=== PATIENT | female | born 1990 | race American Indian/Alaskan Native ===

== ENCOUNTER 2019-06-10 17:03 | Emergency (ER) | payer SELFPAY ==
--- NOTE | 2019-06-10 19:12 | Emergency Department Report ---
<ABRIL HAMMOND - Last Filed: 06/11/19 00:59> ED Psych HPI - General Chief Complaint: Psych Stated Complaint: PSYCH EVALUATION Time Seen by Provider: 06/10/19 18:56 Source: patient, EMS Mode of arrival: Ambulatory - History of Present Illness Initial Comments: 29-year-old female with unknown medical history presents to ED via EMS. Patient initially stated she came for a "[place] Detox." Patient states she has been taking everything she can at home for [place] such as Rojas Peppers, seeds of the pepper, V-8 Juice, etc. when I enter the room, patient tells me she is here for a test. Patient then tells me that she was arrested for battery. And states that she was not actually guilty of battery, stating "I do not know if it was audition or they were trying to sell my organs on the black market." Speech is disorganized, patient has flight of ideas. She is unable to answer my questions directly. Patient is sidetracked very easily. MD Complaint: other -: unknown Associated Psychiatric Symptoms: racing thoughts, delusions Quality: constant Associated Symptoms: denies other symptoms Treatments Prior to Arrival: none - Related Data Home Medications Medication Instructions Recorded Confirmed Last Taken Vit 93/Iron Fum/Folic 1 each PO QDAY 12/23/12 08/21/13 08/20/13 10:00 [ Formula Tablet] Valacyclovir HCl [Valacyclovir] 500 mg PO DAILY 08/20/13 08/20/13 08/20/13 16:00 Previous Rx's Medication Instructions Recorded Last Taken Type oxyCODONE /ACETAMINOPHEN [Percocet 1 tab PO Q4HR #30 tablet 08/22/13 Unknown Rx 5/325 mg] Allergies Allergy/AdvReac Type Severity Reaction Status Date / Time No Known Allergies Allergy Verified 08/20/13 19:31 ED Review of Systems Psychiatric: denies: homicidal thoughts, suicidal thoughts ED Past Medical Hx - Past Medical History Hx Hypertension: No Hx Congestive Heart Failure: No Hx Diabetes: No Hx Deep Vein Thrombosis: No Hx Renal Disease: No Hx Sickle Cell Disease: No Hx Seizures: No Hx Asthma: No Hx COPD: No Hx HIV: No Additional medical history: shingles - Social History Smoking Status: Never Smoker Substance Use Type: Alcohol, Marijuana - Medications Home Medications: Home Medications Medication Instructions Recorded Confirmed Last Taken Type Vit 93/Iron Fum/Folic 1 each PO QDAY 12/23/12 08/21/13 08/20/13 10:00 History [ Formula Tablet] Valacyclovir HCl [Valacyclovir] 500 mg PO DAILY 08/20/13 08/20/13 08/20/13 16:00 History oxyCODONE /ACETAMINOPHEN [Percocet 1 tab PO Q4HR #30 tablet 08/22/13 Unknown Rx 5/325 mg] ED Physical Exam - General Limitations: No Limitations General appearance: alert, in no apparent distress - Head Head exam: Present: atraumatic, normocephalic - Eye Eye exam: Present: normal appearance, EOMI - ENT ENT exam: Present: mucous membranes moist - Neck Neck exam: Present: normal inspection - Respiratory Respiratory exam: Present: normal lung sounds bilaterally. Absent: respiratory distress - Cardiovascular Cardiovascular Exam: Present: regular rate, normal rhythm - GI/Abdominal GI/Abdominal exam: Absent: distended - Extremities Exam Extremities exam: Present: normal inspection - Neurological Exam Neurological exam: Present: alert, oriented X3 - Psychiatric Psychiatric exam: Present: manic, other (Speech is pressured, flight of ideas present, thoughts are disorganized, delusions present) - Skin Skin exam: Present: warm, dry, intact, normal color ED Medical Decision Making - Lab Data Result diagrams: 06/10/19 17:59 06/10/19 17:59 - Medical Decision Making 29-year-old female appears to be manic and psychotic. Labs are very reviewed and are unremarkable. Patient has been placed on a 1013, required Ativan for sedation. Patient is medically clear for mental health evaluation. Will dispo per psych. - Differential Diagnosis Bipolar, david, psychosis, drug intoxication ED Disposition Condition: Stable Referrals: PRIMARY CARE, [Primary Care Provider] - 3-5 Days <RAHEEL BREWER - Last Filed: 06/12/19 14:36> ED Review of Systems ROS: Stated complaint: PSYCH EVALUATION Other details as noted in HPI ED Course Vital Signs 06/10/19 06/10/19 06/10/19 17:50 18:03 19:44 Temperature 98.8 F 98.2 F Pulse Rate 88 80 Respiratory 18 18 18 Rate Blood Pressure 156/110 Blood Pressure 135/95 [Right] O2 Sat by Pulse 100 100 100 Oximetry 06/11/19 06/11/19 06/11/19 01:14 07:35 08:33 Temperature 98.0 F 97.8 F Pulse Rate 87 70 Respiratory 16 20 18 Rate Blood Pressure Blood Pressure 123/84 116/77 [Right] O2 Sat by Pulse 100 100 100 Oximetry 06/11/19 06/12/19 06/12/19 19:20 01:48 07:45 Temperature 98.2 F 97.4 F L 97.9 F Pulse Rate 71 53 L 72 Respiratory 16 16 18 Rate Blood Pressure Blood Pressure 130/82 134/98 96/56 [Right] O2 Sat by Pulse 100 100 98 Oximetry - Reevaluation(s) Reevaluation #1: 06/12/19 14:36 In the 2 days that the patient has been present in our emergency department she is not showing any signs of COVID-19. Testing is reserved for patients who are admitted and showing advanced disease. Patient is not meeting criteria for COVID-19 testing. ED Medical Decision Making - Lab Data Result diagrams: 06/10/19 17:59 06/10/19 17:59 Critical care attestation.: If time is entered above; I have spent that time in minutes in the direct care of this critically ill patient, excluding procedure time.
[2019-06-10 19:18] LABS: Red Blood Count 3.77 M/mm3 (3.65-5.03)
[2019-06-10 19:19] LABS: Basophils % (Auto) 1.9 % (0.0-1.8); Eosinophils % (Auto) 1.3 % (0.0-4.3); Hematocrit 30.4 % (30.3-42.9); Hemoglobin 9.2 gm/dl (10.1-14.3); Lymphocytes % (Auto) 33.8 % (13.4-35.0); Mean Corpuscular HGB Conc 30 % (30-34); Mean Corpuscular Volume 81 fl (79-97); Mean Platelet Volume 7.4 fl (6-12); Monocytes % (Auto) 7.8 % (0.0-7.3); Platelet Count 469 K/mm3 (140-440); Red Cell Distribution Width 19.4 % (13.2-15.2)
[2019-06-10 19:20] LABS: Basophils # (Auto) 0.1 K/mm3 (0.0-0.1); Eosinophils # (Auto) 0.1 K/mm3 (0.0-0.4); Lymphocytes # (Auto) 1.6 K/mm3 (1.2-5.4); Monocytes # (Auto) 0.4 K/mm3 (0.0-0.8)
[2019-06-10 19:29] LABS: BUN/Creatinine Ratio 11; Blood Urea Nitrogen 9 mg/dL (7-17); Calcium 9.4 mg/dL (8.4-10.2); Hemolysis Index 4
[2019-06-10 19:59] LABS: Bilirubin,Urine NEG (Negative); Blood,Urine NEG (Negative); Color,Urine Colorless (Yellow); Mucus,Urine FEW /HPF; Protein,Urine <15 mg/dL mg/dL (Negative); Urobilinogen,Urine < 2.0 mg/dL (<2.0)
[2019-06-10 20:12] LABS: Amphetamine Screen,Urine PRESUMPTIVE NEGATIVE; Benzodiazepines Screen,Urine PRESUMPTIVE NEGATIVE; Cannabinoid Screen,Urine PRESUMPTIVE NEGATIVE; Cocaine Screen,Urine PRESUMPTIVE NEGATIVE; Methadone Screen,Urine PRESUMPTIVE NEGATIVE; Opiate Screen,Urine PRESUMPTIVE NEGATIVE
[2019-06-10] MEDS ORDERED: LORazepam 2 MG/ML VIAL ONE (21:30)
[2019-06-10] MEDS ORDERED: LORazepam 2 MG/ML VIAL IM ONE (21:40)
[2019-06-11] MEDS ORDERED: LORazepam 2 MG/ML VIAL IM ONE (23:30)
[2019-06-11] MEDS ORDERED: LORazepam 2 MG/ML VIAL IM PRN (23:39)
[2019-06-11] MEDS ORDERED: LORazepam 2 MG/ML VIAL ONE (23:41)
[2019-06-12 02:06] LABS: HCG Qualitative,Urine Negative (Negative)
--- NOTE | 2019-06-12 11:17 | Consultation ---
History of Present Illness - Reason for Consult Consult date: 06/12/19 Reason for consult: Psychosis - History of Present Psychiatric Illness The patient's medical record was reviewed at the patient's progress was discussed with the nursing staff. The nurse note states the patient out of room 14 for bathroom and hydration. She has continued bizarre behavior. She requests frequent trips to the restroom. Chalino Cheema is a 29y/o female who was admitted to the ER for bizarre and disorganized behavior. During my interview the patient was lying down, awake. She is a/o x 3. She makes fair eye contact. She is soft spoken and at times inaudible. She is calm and cooperative. She says she feels "okay." She says she was brought to the hospital because her family thought she was "erratic and violent." She then looks at me and says "this is a hospital, right?" The patient says she hears voices of "rap music and beats." She then starts hitting the floor making a beat with her fists to show me what it sounds like she's hearing. She denies SI/HI stating, "I wont hurt anybody." She says "If I get some rest I think I'll be okay." The patient has urinated in her food tray. She says she "didn't have a choice." PAST PSYCHIATRIC HISTORY: Diagnoses: Denies Suicide attempts or Self-harm behavior: Denies Prior psychiatric hospitalizations: Denies Substance Abuse history: Denies Previous psychiatric medications tried: Denies Outpatient treatment: None reported PAST MEDICAL HISTORY: None reported Family Psychiatric History: None reported or documented SOCIAL HISTORY Marital Status: Single Living Arrangements: living with family Employment Status: unemployed Access to guns/weapons: Denies Education: High school History of Abuse: None reported Legal History: Denies REVIEW OF SYSTEMS Constitutional: Negative for weight loss ENT: Negative for stridor Respiratory: Negative for cough or hemoptysis All other systems reviewed and are negative MENTAL STATUS EXAMINATION General Appearance: Dressed appropriately Behavior: Calm and cooperative Mood: okay Affect: congruent with stated mood Speech: low tone, soft Thought Process: Goal oriented Thought Content: Suicidal Ideation: Denies Homicidal Ideation: Denies Hallucinations: Auditory Delusions: None elicited Insight and Judgment: Limited Memory/Cognition: Limited Assessment Schizoaffective Disorder Plan Medications Start Risperidone 0.5mg po BID Start Trazodone 50mg po qhs Start Melatonin 5mg po qhs prn insomnia Sitter: Defer to primary Medical: Per primary Disposition: The patient meets the criteria for acute inpatient psychiatric treatment. She may transfer to a psychiatric facility once medically cleared. Will continue to follow the patient and monitor her progress and side effects of medications, until transferred or improvement of her condition. The treatment plan and medications, including benefits and side effects was discussed with the patient. She verbalizes understanding. Medications and Allergies Allergies Allergy/AdvReac Type Severity Reaction Status Date / Time No Known Allergies Allergy Verified 08/20/13 19:31 Home Medications Medication Instructions Recorded Confirmed Last Taken Type Vit 93/Iron Fum/Folic 1 each PO QDAY 12/23/12 08/21/13 08/20/13 10:00 History [ Formula Tablet] Valacyclovir HCl [Valacyclovir] 500 mg PO DAILY 08/20/13 08/20/13 08/20/13 16:00 History oxyCODONE /ACETAMINOPHEN [Percocet 1 tab PO Q4HR #30 tablet 08/22/13 Unknown Rx 5/325 mg] Active Meds: Active Medications Lorazepam (Ativan) 2 mg IM Q4HR PRN PRN Reason: Agitation Mental Status Exam - Vital signs Last Vital Signs Temp 97.9 F 06/12/19 07:45 Pulse 72 06/12/19 07:45 Resp 18 06/12/19 07:45 BP 96/56 06/12/19 07:45 Pulse Ox 98 06/12/19 07:45 Results Result Diagrams: 06/10/19 17:59 06/10/19 17:59 All other labs normal.
[2019-06-12] MEDS: risperiDONE 0.25 MG TAB PO SCH ×2 (14:00→22:04)
[2019-06-12] MEDS ORDERED: MELATONIN 5 MG TAB PO PRN (21:00)
[2019-06-12] MEDS: traZODone 50 MG TAB PO SCH (22:04)
[2019-06-13] MEDS: risperiDONE 0.25 MG TAB PO SCH (09:38)
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
[2019-06-13] MEDS: risperiDONE 1 MG TAB PO SCH ×2 (15:05→22:37)
[2019-06-13] MEDS: traZODone 50 MG TAB PO SCH (22:38)
[2019-06-14] MEDS: risperiDONE 1 MG TAB PO SCH ×3 (11:05→23:31)
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
[2019-06-14] MEDS ORDERED: risperiDONE 1 MG TAB PO ONE (12:00)
[2019-06-14] MEDS: traZODone 50 MG TAB PO SCH ×2 (23:28→23:31)
[2019-06-15] MEDS ORDERED: BENZTROPINE 0.5 MG TAB PO SCH (10:00)
[2019-06-15] MEDS: risperiDONE 1 MG TAB PO SCH ×2 (10:02→21:58)
--- NOTE | 2019-06-15 11:13 | Progress Note ---
Subjective - Reason for Consult Consult date: 06/15/19 Reason for consult: Psychosis - Chief Complaint Chief complaint: The patient's medical record was reviewed and the patient's progress was discussed with the nursing staff. During my interview with the patient she was out of her room in the hallway. The patient asked to speak with her in her room. She is dressed appropriately. She is a/o x 3. She makes intermittent eye contact. She says she is "better, I think." She is disorganzied. She is experiencing flight of ideas. The patient asks me if she could go home. She then states, "I want to go home because I feel pressure on my ovaries." She is motioning her hand back and forth over her lower abdomen. She then states, "I think I have a hemorrhoid on my ovary or private part." The patient then leans forward rubbing her eye, "or maybe my eye. I think it's a tumor though." She denies SI/HI, stating "never. I never was." She says "my family told me I need to see a counselor. I've been calling around but haven't found anyone." She then says, "maybe I'm depressed." She says "my dad is a citizen of [place]." She then states, "or maybe he's just a citizen." She then comments, "or It could be my step-dad, I guess." The patient verbalizes "hearing voices in my head of family members." She says "but I read a lot of books, maybe it's them in my head." She denies any problems with her sleep or appetite. REVIEW OF SYSTEMS Constitutional: Negative for weight loss ENT: Negative for stridor Respiratory: Negative for cough or hemoptysis All other systems reviewed and are negative MENTAL STATUS EXAMINATION General Appearance: Dressed appropriately Behavior: Calm and cooperative Mood: "better" Affect: congruent with stated mood Speech: low tone, soft, tangential Thought Process: Flight of ideas, disorganized Thought Content: Suicidal Ideation: Denies Homicidal Ideation: Denies Hallucinations: Auditory Delusions: Yes Insight and Judgment: Limited Memory/Cognition: Limited Assessment Schizoaffective Disorder Plan Medications Increased Risperidone 3mg po BID Increased Cogentin 0.5mg po BID Started Prozac 10mg po daily to treat underlying depression Sitter: Defer to primary Medical: Per primary Disposition: The patient meets the criteria for acute inpatient psychiatric treatment. She may transfer to a psychiatric facility once medically cleared. Will continue to follow the patient and monitor her progress and side effects of medications, until transferred or improvement of her condition. The treatment plan and medications, including benefits and side effects was discussed with the patient. The patient verbalizes understanding. Will continue to follow until the patient is transferred or improved Thank you for this consult. Mental Status Exam - Vital signs Last Vital Signs Temp 98 F 06/15/19 09:39 Pulse 65 06/15/19 09:39 Resp 18 06/15/19 09:39 BP 118/69 06/15/19 09:39 Pulse Ox 98 06/15/19 09:39
[2019-06-15] MEDS ORDERED: risperiDONE 1 MG TAB PO SCH (11:30)
[2019-06-15] MEDS: FLUoxetine 10 MG TAB PO SCH (12:11)
[2019-06-15] MEDS ORDERED: risperiDONE 1 MG TAB ONE (14:16)
[2019-06-15] MEDS: traZODone 50 MG TAB PO SCH (21:58)
[2019-06-15] MEDS: BENZTROPINE 0.5 MG TAB PO SCH (21:58)
--- NOTE | 2019-06-16 10:45 | Progress Note ---
Subjective - Reason for Consult Consult date: 06/16/19 Reason for consult: psychosis - Chief Complaint Chief complaint: The patient's medical record was reviewed and the patient's progress was discussed with the nursing staff. During my interview with the patient, she is lying down awake. She is a/o x 3. She makes intermittent eye contact. She states, "I'm doing good," when asked how she was feeling. She says her appetite is "good." The patient denies SI/HI, stating, "no, my family just thinks I needs therapy." She then states, "I did call some places yesterday though, to help me with my emotions." When asked about any hallucinations, she says, "not that much." I asked the patient to elaborate on what she meant, she states, "I hear my sister's voice and different points of view." She then states, "I'm not sure what that's about." She says she has "slept well, pretty much." REVIEW OF SYSTEMS Constitutional: Negative for weight loss ENT: Negative for stridor Respiratory: Negative for cough or hemoptysis All other systems reviewed and are negative MENTAL STATUS EXAMINATION General Appearance: Dressed appropriately Behavior: Calm and cooperative Mood: "good" Affect: congruent with stated mood Speech: low tone, soft, tangential Thought Process: disorganized Thought Content: Suicidal Ideation: Denies Homicidal Ideation: Denies Hallucinations: Auditory Delusions: Yes Insight and Judgment: Limited Memory/Cognition: Limited Assessment Schizoaffective Disorder Plan Medications Increased Prozac 20mg po daily to treat underlying depression Sitter: Defer to primary Medical: Per primary Disposition: The patient meets the criteria for acute inpatient psychiatric treatment. She may transfer to a psychiatric facility once medically cleared. Will continue to follow the patient and monitor her progress and side effects of medications, until transferred or improvement of her condition. The treatment plan and medications, including benefits and side effects was discussed with the patient. The patient verbalizes understanding. Will continue to follow until the patient is transferred or improved Thank you for this consult. Mental Status Exam - Vital signs Last Vital Signs Temp 97.8 F 06/16/19 09:04 Pulse 94 H 06/16/19 09:04 Resp 16 06/16/19 09:04 BP 124/74 06/16/19 09:04 Pulse Ox 98 06/16/19 09:04
[2019-06-16] MEDS ORDERED: FLUoxetine 10 MG TAB PO SCH (10:46)
[2019-06-16] MEDS: risperiDONE 1 MG TAB PO SCH ×2 (10:57→22:06)
[2019-06-16] MEDS: BENZTROPINE 0.5 MG TAB PO SCH ×2 (10:58→22:04)
[2019-06-16] MEDS: FLUoxetine 10 MG TAB PO SCH (11:03)
[2019-06-16] MEDS: FLUoxetine 20 MG CAP PO SCH (12:36)
[2019-06-16] MEDS: traZODone 50 MG TAB PO SCH (22:05)
[2019-06-17] MEDS: risperiDONE 1 MG TAB PO SCH (09:56)
[2019-06-17] MEDS: FLUoxetine 20 MG CAP PO SCH (09:57)
[2019-06-17] MEDS: BENZTROPINE 0.5 MG TAB PO SCH (09:57)
--- NOTE | 2019-06-17 12:32 | Progress Note ---
Subjective - Reason for Consult Consult date: 06/17/19 Reason for consult: MHE Requesting physician: ABRIL HAMMOND - Chief Complaint Chief complaint: Per ED Nurse Note: 0957 PT PRETENDED TO TAKE MEDS BUT WAS STILL IN HAND. PT TOOK MEDS ON SECOND TRY. Provider HPI: Patient was seen in the room and evaluated by me this AM. Patient reports her mood is fine states she slept good and appetite has been okay patient states she has these thoughts about her being on TV for a show, and she also thinks she has got an eye injury and that she needs to see an eye doctor patient also reports it feels like she is got things crawling on her skin and that she knows she sometimes thinks she has these medical conditions when she really does not have it. Patient then went on to talk about doing laundry, she has not been given soap here. She then states shes glad im here because her family wants her to see a psychiatrist. MENTAL STATUS EXAMINATION General Appearance and Behavior: Age appropriate, poor/fair/good hygiene, wearing appropriate clothes, lying in bed, good/poor eye contact, cooperative/uncooperative with questioning and polite/irritable Cooperation: Participating/engaged, Withdrawn, Isolative, Threatening, Cooperative, Hostile and Guarded Psychomotor Behavior: Psychomotor agitation, psychomotor retardation, unremarkable and within normal limits Mood: Good, OK, Anxious, Depressed, Great, I don't know and so-so Affect and affective range: Angry, anxious, constricted, decreased range, depressed, dysthymic, euphoric, euthymic, irritable, labile and sad Thought Process: Fluent/Logical, Tangential, Circumstantial, Perseverative, Illogical, Goal-directed, Rambling, Pressured, Blocked, Fragmented and Loose associations Thought Content: Flight of ideas, Illogical, Grandiose, Phobia Paranoid, Ideas of reference, Hallucinations including auditory, visual, tactile and Paranoid Speech: pressured, loud volume, confused. Intellectual Functioning: Poor Suicidal Ideation: Denies SI Homicidal Ideation: Denies HI Impulse Control: Unimpaired Insight and Judgment: Impaired Memory: Unaccessible Attention: Divided attention impaired Orientation: anxious and elated Assessment and Plan - Patient Problems (1) Schizophrenia, paranoid type Status: Acute RECOMMENDATIONS MEDICATIONS: Continue current meds. Risks, benefits and alternatives of medications discussed with the patient, questions answered and consent obtained from patient. PSYCHOTHERAPY: Supportive psychotherapy provided MEDICAL: Per primary team DELIRIUM PRECAUTIONS: Please re-orient patient frequently, keep lights on during the day, and minimize benzodiazepines and opiates as these medications could worsen patient's confusion. SAP PI ARCHITECT: Per medical team DISPOSITION: indication for acute inpatient psychiatric hospitalization recommended at this time LEGAL STATUS: 1013 FOLLOW-UP: Will follow Thank you for the consult. Please contact with any questions and/or concerns. Mental Status Exam - Vital signs Last Vital Signs Temp 97.4 F L 06/17/19 08:59 Pulse 53 L 06/17/19 08:59 Resp 18 06/17/19 10:24 BP 120/59 06/17/19 08:59 Pulse Ox 99 06/17/19 10:24 Assessment and Plan - Patient Problems (1) Schizophrenia, paranoid type Status: Acute
[2019-06-17 16:11] VITALS: BP 113/70
== END 2019-06-17 16:10 ==
LOC: ED 17:03 → EEVIPCON 17:03 → ED 06-17 16:10
DX: F22 Delusional disorders (principal); F12.10 Cannabis abuse, uncomplicated; Z79.899 Other long term (current) drug therapy
CPT/HCPCS: 36415; 80048; 80307; 81001; 81025; 85025; 96372; 99285; J2060; 80320; G0480